=== PATIENT | female | born 2005 | race Asian ===

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

== ENCOUNTER 2024-10-20 17:24 | Inpatient (IN) ==
--- NOTE | 2024-10-20 17:40 | Emergency Department Note ---
Impression & Plan Suicidal ideation, Suicide gesture, Intentional self-harm, Hypokalemia ED Provider Note NAME: JOHANN RIOS AGE: 19 SEX: F : 2005 ARRIVES VIA: Walk-In INFORMANT: Patient ED PROVIDER(S): Shaggy Murray MD CHIEF COMPLAINT: Depression, suicidal ideation, self-harm, referred. PLAN: Disposition: Inpatient psychiatric treatment, 3 S. MEDICAL DECISION MAKING: The patient is a 19-year-old woman, [employer] international student from [place] who presents to emergency department via walk-in accompanied by friend and referred by [employer] [facility] for suicidal ideation and self-harm where the patient had inflicted a superficial linear laceration to the right anterior lateral aspect of her neck. Patient acknowledges that this is a dangerous place to cause self-harm but she did not necessarily have the intent to kill herself when she did it. However she does admit to having fluctuating thoughts of killing herself. On evaluation the patient is no acute distress, afebrile with heart in the 150s in the setting of anxiety and otherwise with stable vital signs. Heart rate improved without intervention. She acknowledges depression, fluctuating suicidal ideation, hopelessness. She denies auditory hallucinations. Linear self-inflicted abrasion of the right anterior lateral neck without underlying hematoma. Cleaned by nursing. WBC, hemoglobin and platelets within normal limits. Chemistry without metabolic acidosis. Potassium 2.8 with IV and oral repletion provided. Magnesium 2.0 however IV magnesium also provided to facilitate absorption of potassium. LFTs unremarkable. TSH within normal limits. hCG negative. UA without evidence of infection. Urine drug screen was negative. Medical alcohol was undetectable. COVID-19 RNA, TAMERA test was negative. Repeat chemistry performed on [id number] i-STAT with improvement in potassium to 3.7. Patient was medically cleared. Appreciate case management system/consultation and completion of psychiatric evaluation. Patient was accepted to 3 S. for further management under 302. Triage Nursing notes reviewed and agree them. Prior/external medical records reviewed Vital Signs: reviewed Differential diagnosis: Mood disorder, infection, hypoglycemia, electrolyte abnormalities, cardiac sources, intracerebral event, toxicologic, trauma, neurologic, as well as other pathologies. ER treatment provided: See below. Laboratory studies: See below Consultation(s): Case management HPI: The patient is a 19-year-old woman, [employer] international student from [place] who presents to emergency department via walk-in accompanied by friend and referred by [employer] [facility] for suicidal ideation and self-harm where the patient had inflicted a superficial linear laceration to the right anterior lateral aspect of her neck. Patient acknowledges that this is a dangerous place to cause self- harm but she did not necessarily have the intent to kill herself when she did it. However she does admit to having fluctuating thoughts of killing herself. ROS: See above HPI for pertinent positives & negatives. A total of 10 systems reviewed and were otherwise negative. VITALS:See Below PHYSICAL EXAMINATION: GENERAL: Awake, alert, in no distress HENT: Normocephalic, atraumatic. Oropharynx unremarkable. EYES: Normal conjunctiva. Sclera non-icteric. NECK: Supple. No nuchal rigidity. FROM. No JVD. Superficial linear abrasion of the right anterior lateral aspect of the neck. No underlying hematoma. RESPIRATORY: Clear to auscultation. CARDIAC: Regular rate, normal rhythm. Extremities warm and well perfused. Pulses equal. ABDOMEN: Soft, non-distended. No tenderness to palpation. No rebound or guarding. No masses. MUSCULOSKELETAL: Chest examination reveals no tenderness. The back is symmetrical on inspection without obvious abnormality. There is no CVA tenderness to palpation. No joint edema. LOWER EXTREMITIES: Calves are equal size bilaterally and non-tender. No edema. No discoloration. NEURO: Normal sensorium. No sensory or motor deficits noted. SKIN: No rash or jaundice noted. PSYCH: Depression, hopelessness, suicidal ideation. Denies auditory examinations. Shaggy Murray MD Past Med/Surg History Problem List (Updated 10/21/24 @ 17:17 by Shaggy Murray MD) Eating disorder, unspecified Unspecified mood [affective] disorder Hypokalemia (Acute) Intentional self-harm (Acute) Suicide gesture (Acute) Suicidal ideation (Acute) Screening for STD (sexually transmitted disease) Acquired deviated nasal septum Post traumatic stress disorder (PTSD) Depression (Acute) Medical History Chronic sinusitis TSH elevation Intentional self-harm Suicidal ideation Surgical History Hx of LASIK Family History Grandfather (Maternal) Myocardial infarction Denies family history of Ovarian cancer Prostate cancer Breast cancer Colorectal cancer Social History Smoking Status: Never smoker Preferred Language: Somali Communication Ability: Effective Training Project Manager Required: No Beliefs That Will Affect Care: Cultural Cultural Beliefs: Patient has a high level of anxiety which she reports is partly due to punitive schooling she attended in [place] Feels Safe at Home: Yes Gender Identity: Female Assistive Devices: Glasses Allergies Allergies Allergy/AdvReac Type Severity Reaction Status Date / Time No Known Allergies Allergy Verified 08/02/23 13:35 Home Meds Home Medications Medication Instructions Recorded Confirmed buspirone 10 mg tablet 10 mg PO TID 07/09/24 10/21/24 metformin 500 mg tablet 500 mg BID 07/09/24 07/09/24 quetiapine 25 mg tablet 50 mg PO HS 07/09/24 10/21/24 valproic acid 250 mg capsule 250 mg PO AC 07/09/24 07/09/24 fluoxetine 40 mg capsule 40 mg PO DAILY 10/20/24 10/21/24 lamotrigine 25 mg tablet 25 mg PO DAILY 10/20/24 10/20/24 Results & Data (ED) Vital Signs Vital Signs - 24 hr 10/20/24 17:26 10/20/24 18:01 10/20/24 19:00 Temperature 36.7 C Temperature Source Oral Pulse Rate 151 H Pulse Rate [Finger] 124 H 116 H Pulse Rate from SpO2 Sensor Respiratory Rate 22 22 20 Respiratory Effort / Characteristics Non-Labored Spontaneous Non-Labored Spontaneous Non-Labored Spontaneous Respiratory Depth Normal Normal Normal Respiratory Pattern Regular Regular Blood Pressure 129/90 Blood Pressure [Left Arm] 145/88 H 114/81 Blood Pressure Mean 103 Blood Pressure Mean [Left Arm] 107 92 Blood Pressure Position Sitting Pulse Oximetry 98 98 98 Oxygen Delivery Method Room Air Room Air Room Air Sepsis Recent Fever Within 48 Hours No Sepsis New/Unexplained Change in Mental Status N/A Sepsis Action Taken by Nursing No Action Required 10/20/24 21:00 10/20/24 22:35 10/20/24 22:36 Temperature Temperature Source Pulse Rate 97 H 88 Pulse Rate [Finger] 102 H Pulse Rate from SpO2 Sensor Respiratory Rate 20 19 Respiratory Effort / Characteristics Non-Labored Spontaneous Respiratory Depth Normal Respiratory Pattern Regular Blood Pressure Blood Pressure [Left Arm] 126/72 Blood Pressure Mean Blood Pressure Mean [Left Arm] 90 Blood Pressure Position Pulse Oximetry 99 99 Oxygen Delivery Method Room Air Room Air Sepsis Recent Fever Within 48 Hours Sepsis New/Unexplained Change in Mental Status Sepsis Action Taken by Nursing 10/20/24 22:48 10/20/24 22:50 10/20/24 22:50 Temperature Temperature Source Pulse Rate 88 Pulse Rate [Finger] Pulse Rate from SpO2 Sensor Respiratory Rate 22 Respiratory Effort / Characteristics Respiratory Depth Respiratory Pattern Blood Pressure 122/82 122/82 Blood Pressure [Left Arm] Blood Pressure Mean 92 92 Blood Pressure Mean [Left Arm] Blood Pressure Position Pulse Oximetry Oxygen Delivery Method Sepsis Recent Fever Within 48 Hours Sepsis New/Unexplained Change in Mental Status Sepsis Action Taken by Nursing 10/20/24 23:00 10/20/24 23:00 10/20/24 23:00 Temperature Temperature Source Pulse Rate Pulse Rate [Finger] Pulse Rate from SpO2 Sensor Respiratory Rate Respiratory Effort / Characteristics Respiratory Depth Respiratory Pattern Blood Pressure 115/83 115/83 115/83 Blood Pressure [Left Arm] Blood Pressure Mean 94 94 94 Blood Pressure Mean [Left Arm] Blood Pressure Position Pulse Oximetry Oxygen Delivery Method Sepsis Recent Fever Within 48 Hours Sepsis New/Unexplained Change in Mental Status Sepsis Action Taken by Nursing 10/20/24 23:00 10/20/24 23:00 10/20/24 23:00 Temperature Temperature Source Pulse Rate 96 H Pulse Rate [Finger] Pulse Rate from SpO2 Sensor 96 H Respiratory Rate 16 Respiratory Effort / Characteristics Respiratory Depth Respiratory Pattern Blood Pressure 115/83 115/83 Blood Pressure [Left Arm] Blood Pressure Mean 94 94 Blood Pressure Mean [Left Arm] Blood Pressure Position Pulse Oximetry 99 Oxygen Delivery Method Sepsis Recent Fever Within 48 Hours Sepsis New/Unexplained Change in Mental Status Sepsis Action Taken by Nursing 10/20/24 23:00 10/20/24 23:00 10/20/24 23:00 Temperature Temperature Source Pulse Rate Pulse Rate [Finger] Pulse Rate from SpO2 Sensor Respiratory Rate Respiratory Effort / Characteristics Respiratory Depth Respiratory Pattern Blood Pressure 115/83 115/83 115/83 Blood Pressure [Left Arm] Blood Pressure Mean 94 94 94 Blood Pressure Mean [Left Arm] Blood Pressure Position Pulse Oximetry Oxygen Delivery Method Sepsis Recent Fever Within 48 Hours Sepsis New/Unexplained Change in Mental Status Sepsis Action Taken by Nursing 10/20/24 23:00 10/20/24 23:00 10/20/24 23:00 Temperature Temperature Source Pulse Rate Pulse Rate [Finger] Pulse Rate from SpO2 Sensor Respiratory Rate Respiratory Effort / Characteristics Respiratory Depth Respiratory Pattern Blood Pressure 115/83 115/83 115/83 Blood Pressure [Left Arm] Blood Pressure Mean 94 94 94 Blood Pressure Mean [Left Arm] Blood Pressure Position Pulse Oximetry Oxygen Delivery Method Sepsis Recent Fever Within 48 Hours Sepsis New/Unexplained Change in Mental Status Sepsis Action Taken by Nursing 10/20/24 23:00 10/20/24 23:00 10/20/24 23:00 Temperature Temperature Source Pulse Rate Pulse Rate [Finger] Pulse Rate from SpO2 Sensor Respiratory Rate Respiratory Effort / Characteristics Respiratory Depth Respiratory Pattern Blood Pressure 115/83 115/83 115/83 Blood Pressure [Left Arm] Blood Pressure Mean 94 94 94 Blood Pressure Mean [Left Arm] Blood Pressure Position Pulse Oximetry Oxygen Delivery Method Sepsis Recent Fever Within 48 Hours Sepsis New/Unexplained Change in Mental Status Sepsis Action Taken by Nursing 10/20/24 23:00 10/20/24 23:00 10/20/24 23:00 Temperature Temperature Source Pulse Rate Pulse Rate [Finger] Pulse Rate from SpO2 Sensor Respiratory Rate Respiratory Effort / Characteristics Respiratory Depth Respiratory Pattern Blood Pressure 115/83 115/83 115/83 Blood Pressure [Left Arm] Blood Pressure Mean 94 94 94 Blood Pressure Mean [Left Arm] Blood Pressure Position Pulse Oximetry Oxygen Delivery Method Sepsis Recent Fever Within 48 Hours Sepsis New/Unexplained Change in Mental Status Sepsis Action Taken by Nursing 10/20/24 23:48 10/21/24 00:00 10/21/24 00:00 Temperature Temperature Source Pulse Rate 90 Pulse Rate [Finger] 92 H Pulse Rate from SpO2 Sensor 91 H Respiratory Rate 27 H 18 Respiratory Effort / Characteristics Respiratory Depth Respiratory Pattern Blood Pressure 119/83 Blood Pressure [Left Arm] 119/83 Blood Pressure Mean 89 Blood Pressure Mean [Left Arm] 95 Blood Pressure Position Pulse Oximetry 99 100 Oxygen Delivery Method Sepsis Recent Fever Within 48 Hours Sepsis New/Unexplained Change in Mental Status Sepsis Action Taken by Nursing 10/21/24 00:00 10/21/24 00:00 10/21/24 00:00 Temperature Temperature Source Pulse Rate Pulse Rate [Finger] Pulse Rate from SpO2 Sensor Respiratory Rate Respiratory Effort / Characteristics Respiratory Depth Respiratory Pattern Blood Pressure 119/83 119/83 119/83 Blood Pressure [Left Arm] Blood Pressure Mean 89 89 89 Blood Pressure Mean [Left Arm] Blood Pressure Position Pulse Oximetry Oxygen Delivery Method Sepsis Recent Fever Within 48 Hours Sepsis New/Unexplained Change in Mental Status Sepsis Action Taken by Nursing 10/21/24 00:00 10/21/24 00:00 10/21/24 00:00 Temperature Temperature Source Pulse Rate Pulse Rate [Finger] Pulse Rate from SpO2 Sensor Respiratory Rate Respiratory Effort / Characteristics Respiratory Depth Respiratory Pattern Blood Pressure 119/83 119/83 119/83 Blood Pressure [Left Arm] Blood Pressure Mean 89 89 89 Blood Pressure Mean [Left Arm] Blood Pressure Position Pulse Oximetry Oxygen Delivery Method Sepsis Recent Fever Within 48 Hours Sepsis New/Unexplained Change in Mental Status Sepsis Action Taken by Nursing 10/21/24 00:00 10/21/24 00:00 10/21/24 00:00 Temperature Temperature Source Pulse Rate Pulse Rate [Finger] Pulse Rate from SpO2 Sensor Respiratory Rate Respiratory Effort / Characteristics Respiratory Depth Respiratory Pattern Blood Pressure 119/83 119/83 119/83 Blood Pressure [Left Arm] Blood Pressure Mean 89 89 89 Blood Pressure Mean [Left Arm] Blood Pressure Position Pulse Oximetry Oxygen Delivery Method Sepsis Recent Fever Within 48 Hours Sepsis New/Unexplained Change in Mental Status Sepsis Action Taken by Nursing 10/21/24 00:00 10/21/24 00:00 10/21/24 00:00 Temperature Temperature Source Pulse Rate Pulse Rate [Finger] Pulse Rate from SpO2 Sensor Respiratory Rate Respiratory Effort / Characteristics Respiratory Depth Respiratory Pattern Blood Pressure 119/83 119/83 119/83 Blood Pressure [Left Arm] Blood Pressure Mean 89 89 89 Blood Pressure Mean [Left Arm] Blood Pressure Position Pulse Oximetry Oxygen Delivery Method Sepsis Recent Fever Within 48 Hours Sepsis New/Unexplained Change in Mental Status Sepsis Action Taken by Nursing 10/21/24 00:03 10/21/24 01:00 10/21/24 01:00 Temperature Temperature Source Pulse Rate 87 95 H Pulse Rate [Finger] Pulse Rate from SpO2 Sensor 89 92 H Respiratory Rate 21 19 Respiratory Effort / Characteristics Respiratory Depth Respiratory Pattern Blood Pressure 123/86 Blood Pressure [Left Arm] Blood Pressure Mean 97 Blood Pressure Mean [Left Arm] Blood Pressure Position Pulse Oximetry 100 100 Oxygen Delivery Method Sepsis Recent Fever Within 48 Hours Sepsis New/Unexplained Change in Mental Status Sepsis Action Taken by Nursing 10/21/24 01:00 10/21/24 01:00 10/21/24 01:00 Temperature Temperature Source Pulse Rate Pulse Rate [Finger] Pulse Rate from SpO2 Sensor Respiratory Rate Respiratory Effort / Characteristics Respiratory Depth Respiratory Pattern Blood Pressure 123/86 123/86 123/86 Blood Pressure [Left Arm] Blood Pressure Mean 97 97 97 Blood Pressure Mean [Left Arm] Blood Pressure Position Pulse Oximetry Oxygen Delivery Method Sepsis Recent Fever Within 48 Hours Sepsis New/Unexplained Change in Mental Status Sepsis Action Taken by Nursing 10/21/24 01:00 10/21/24 01:00 10/21/24 01:00 Temperature Temperature Source Pulse Rate Pulse Rate [Finger] Pulse Rate from SpO2 Sensor Respiratory Rate Respiratory Effort / Characteristics Respiratory Depth Respiratory Pattern Blood Pressure 123/86 123/86 123/86 Blood Pressure [Left Arm] Blood Pressure Mean 97 97 97 Blood Pressure Mean [Left Arm] Blood Pressure Position Pulse Oximetry Oxygen Delivery Method Sepsis Recent Fever Within 48 Hours Sepsis New/Unexplained Change in Mental Status Sepsis Action Taken by Nursing 10/21/24 01:00 10/21/24 01:00 10/21/24 01:00 Temperature Temperature Source Pulse Rate Pulse Rate [Finger] Pulse Rate from SpO2 Sensor Respiratory Rate Respiratory Effort / Characteristics Respiratory Depth Respiratory Pattern Blood Pressure 123/86 123/86 123/86 Blood Pressure [Left Arm] Blood Pressure Mean 97 97 97 Blood Pressure Mean [Left Arm] Blood Pressure Position Pulse Oximetry Oxygen Delivery Method Sepsis Recent Fever Within 48 Hours Sepsis New/Unexplained Change in Mental Status Sepsis Action Taken by Nursing 10/21/24 01:00 10/21/24 01:00 10/21/24 01:00 Temperature Temperature Source Pulse Rate Pulse Rate [Finger] Pulse Rate from SpO2 Sensor Respiratory Rate Respiratory Effort / Characteristics Respiratory Depth Respiratory Pattern Blood Pressure 123/86 123/86 123/86 Blood Pressure [Left Arm] Blood Pressure Mean 97 97 97 Blood Pressure Mean [Left Arm] Blood Pressure Position Pulse Oximetry Oxygen Delivery Method Sepsis Recent Fever Within 48 Hours Sepsis New/Unexplained Change in Mental Status Sepsis Action Taken by Nursing 10/21/24 01:00 10/21/24 01:00 10/21/24 01:00 Temperature Temperature Source Pulse Rate Pulse Rate [Finger] Pulse Rate from SpO2 Sensor Respiratory Rate Respiratory Effort / Characteristics Respiratory Depth Respiratory Pattern Blood Pressure 123/86 123/86 123/86 Blood Pressure [Left Arm] Blood Pressure Mean 97 97 97 Blood Pressure Mean [Left Arm] Blood Pressure Position Pulse Oximetry Oxygen Delivery Method Sepsis Recent Fever Within 48 Hours Sepsis New/Unexplained Change in Mental Status Sepsis Action Taken by Nursing 10/21/24 02:00 10/21/24 02:00 10/21/24 02:00 Temperature Temperature Source Pulse Rate 88 Pulse Rate [Finger] Pulse Rate from SpO2 Sensor 86 Respiratory Rate 16 Respiratory Effort / Characteristics Respiratory Depth Respiratory Pattern Blood Pressure 129/85 129/85 Blood Pressure [Left Arm] Blood Pressure Mean 91 91 Blood Pressure Mean [Left Arm] Blood Pressure Position Pulse Oximetry 99 Oxygen Delivery Method Sepsis Recent Fever Within 48 Hours Sepsis New/Unexplained Change in Mental Status Sepsis Action Taken by Nursing 10/21/24 02:00 10/21/24 02:00 10/21/24 02:00 Temperature Temperature Source Pulse Rate Pulse Rate [Finger] Pulse Rate from SpO2 Sensor Respiratory Rate Respiratory Effort / Characteristics Respiratory Depth Respiratory Pattern Blood Pressure 129/85 129/85 129/85 Blood Pressure [Left Arm] Blood Pressure Mean 91 91 91 Blood Pressure Mean [Left Arm] Blood Pressure Position Pulse Oximetry Oxygen Delivery Method Sepsis Recent Fever Within 48 Hours Sepsis New/Unexplained Change in Mental Status Sepsis Action Taken by Nursing 10/21/24 02:23 10/21/24 03:00 Temperature Temperature Source Pulse Rate 81 Pulse Rate [Finger] 90 Pulse Rate from SpO2 Sensor Respiratory Rate 18 Respiratory Effort / Characteristics Respiratory Depth Respiratory Pattern Blood Pressure Blood Pressure [Left Arm] 111/79 Blood Pressure Mean Blood Pressure Mean [Left Arm] 89 Blood Pressure Position Pulse Oximetry 98 Oxygen Delivery Method Room Air Sepsis Recent Fever Within 48 Hours Sepsis New/Unexplained Change in Mental Status Sepsis Action Taken by Nursing Laboratory Data Attestation: I reviewed the patient's lab results. 10/20/24 18:00 10/20/24 18:00 Lab Results 10/20/24 10/20/24 10/21/24 Range/Units 18:00 18:50 02:12 WBC 6.13 (4.8-10.8) K/ul RBC 4.02 L (4.20-5.40) M/uL Hgb 12.1 (12.0-16.0) g/dl POC Hgb 10.9 L (12.0-16.0) g/dl Hct 35.4 L (37.0-47.0) % POC Hct 32 L (37-47) % MCV 88.1 (80.0-100.0) fL MCH 30.1 (25.0-34.0) pg MCHC 34.2 (32.0-36.0) g/dL RDW Std Deviation 38.3 (36.4-46.3) fL RDW Coeff of Gretchen 11.9 (11.5-14.5) % Plt Count 281 (130-400) K/uL MPV 9.9 (9.4-12.4) fL Immature Gran % (Auto) 0.3 % Neut % (Auto) 74.2 % Lymph % (Auto) 18.8 % [place] % (Auto) 5.9 % Eos % (Auto) 0.3 % Baso % (Auto) 0.5 % Neut # (Auto) 4.55 (1.40-6.50) K/uL Lymph # (Auto) 1.15 L (1.20-3.40) K/uL [place] # (Auto) 0.36 (0.11-0.59) K/uL Eos # (Auto) 0.02 (0.00-0.50) K/uL Baso # (Auto) 0.03 (0.00-0.20) K/uL Immature Gran # (Auto) 0.02 (0.01-0.20) K/uL POC Sodium 139 (135-144) mmol/L Sodium 135 L (136-145) mmol/L POC Potassium 3.7 (3.3-5.0) mmol/L Potassium 2.8 L (3.5-5.1) mmol/L POC Chloride 109 (101-112) mmol/L Chloride 104 (98-107) mmol/L Carbon Dioxide 22 (21-32) mmol/L POC Total CO2 18 L (24-31) mmol/L Anion Gap 9 (3-11) POC Anion Gap 17.0 (16-25) mmol/L POC BUN < 3 L (7-18) mg/dl BUN 8 (6-23) mg/dl Creatinine 0.58 L (0.6-1.2) mg/dl POC Creatinine 0.4 mg/dl Est Cr Clr Drug Dosing 105.5 ml/min eGFR 132.78 BUN/Creatinine Ratio 13.8 (10-20) Glucose 106 H (70-99(Fasting)) mg/dl POC Glucose (other) 92 (70-99) mg/dl Calcium 9.4 (8.6-10.3) mg/dl POC Ioniz Calcium Jesús 1.13 mmol/l Magnesium 2.0 (1.7-2.4) mg/dl Total Bilirubin 0.4 (0.2-1.0) mg/dl AST 16 (13-39) U/L ALT 8 (7-52) U/L Alkaline Phosphatase 32 L (34-104) U/L Total Protein 8.2 (6.0-8.3) gm/dl Albumin 4.6 (3.4-5.0) gm/dl Globulin 3.6 (2.5-4.0) gm/dl Albumin/Globulin Ratio 1.3 (0.9-2) TSH 1.935 (0.300-4.500) uIu/ml HCG, Qual Negative (Negative) Urine Color Yellow Urine Appearance Clear (Clear) Urine pH 7.5 (4.5-7.5) Ur Specific [place] 1.005 (1.000-1.030) Urine Protein Negative (Negative) Urine Glucose (UA) Negative (Negative) Urine Ketones Negative (Negative) Urine Blood Negative (Negative) Urine Nitrite Negative (Negative) Urine Bilirubin Negative (Negative) Urine Urobilinogen Negative (Negative) Ur Leukocyte Esterase 1+ H (Negative) Urine WBC (Auto) 0-5 (0-5) /hpf Urine RBC (Auto) 0-2 (0-2) /hpf U Hyaline Cast (Auto) 0-2 (0-2) /lpf U Epithel Cells (Auto) 0-2 (0-2) /hpf Urine Bacteria (Auto) None Seen (None Seen) Salicylates < 3.0 L (3.0-30) mg/dl Urine Opiates Screen Neg (Neg) Ur Methadone, Qual Neg (Neg) Urine Fentanyl Screen Neg (Neg) Acetaminophen < 3 L (10-30) ug/ml Urine Barbiturates Neg (Neg) Valproic Acid < 10 L (50-100) mcg/ml Ur Phencyclidine (PCP) Neg (Neg) U Amphetamin/Meth Scrn Neg (Neg) MDMA (Ecstasy) Screen Neg (Neg) U Benzodiazepines Scrn Neg (Neg) Ur Cocaine Metabolite Neg (Neg) U Marijuana (THC) Screen Neg (Neg) Ethyl Alcohol mg/dL < 10.0 (<10.0) mg/dl SARS-CoV-2, RNA, NAAT NEGATIVE (NEGATIVE) Administered Medications Buspirone HCl (Buspirone 5 Mg Tab) 10 mg PO TID UMU Stop: 11/20/24 13:59 Last Admin: 10/21/24 14:46 Dose: 10 mg Documented By: JOS Fluoxetine HCl (Fluoxetine Hcl 20 Mg Cap) 20 mg PO DAILY UMU Stop: 11/20/24 11:14 Last Admin: 10/21/24 11:36 Dose: 20 mg Documented By: JOS Lamotrigine (Lamotrigine 25 Mg Tab) 25 mg PO DAILY UMU; Protocol Stop: 11/20/24 11:14 Last Admin: 10/21/24 11:36 Dose: 25 mg Documented By: JOS Discontinued Medications Potassium Chloride (K Adrian / Wtr) 10 meq in 100 mls @ 100 mls/hr IV Q1H UMU Stop: 10/20/24 23:29 Last Infusion: 10/21/24 00:48 Dose: Infused Documented By: Admin: 10/20/24 23:41 Dose: 100 mls/hr Documented By: Infusion: 10/20/24 23:35 Dose: Infused Documented By: Admin: 10/20/24 22:28 Dose: 100 mls/hr Documented By: ALFONSO Magnesium Sulfate/Dextrose (Magnesium Sulfate / D5w) 1 gm in 100 mls @ 100 mls/hr IV NOW STA Stop: 10/20/24 22:28 Last Infusion: 10/20/24 23:36 Dose: Infused Documented By: Admin: 10/20/24 22:28 Dose: 100 mls/hr Documented By: ALFONSO Sodium Chloride (Nss) 500 mls @ 125 mls/hr IV .Q4H UMU Stop: 10/21/24 01:29 Last Infusion: 10/21/24 02:28 Dose: Infused Documented By: Admin: 10/20/24 22:28 Dose: 125 mls/hr Documented By: ALFONSO Potassium Chloride (Potassium Chloride Crtab 20 Meq Tabcr) 40 meq PO NOW STA Stop: 10/20/24 21:29 Last Admin: 10/20/24 22:28 Dose: 40 meq Documented By: ALFONSO Discharge Plan Visit Data Chief Complaint: Mental Health Evaluation Stated Complaint: MENTAL HEALTH EVALUATION ED Provider: Shaggy Murray Discharge Problem: Suicidal ideation, Suicide gesture, Intentional self-harm, Hypokalemia Patient Disposition: Admitted As Inpatient Discharge Instructions Interventions: ED Discharge Assessment Last Done: 10/21/24 04:18 Discharge Problem: Suicide gesture Qualifiers: Encounter type: initial encounter Qualified Code(s): X83.8XXA - Intentional self-harm by other specified means, initial encounter
[2024-10-20 18:19] LABS: Basophils # (auto) 0.03 K/uL (0.00-0.20); Basophils % (auto) 0.5 %; Eosinophils # (auto) 0.02 K/uL (0.00-0.50); Eosinophils % (auto) 0.3 %; Hematocrit (blood only) 35.4 % (37.0-47.0); Hemoglobin 12.1 g/dl (12.0-16.0); Immature Granulocytes # (auto) 0.02 K/uL (0.01-0.20); Immature Granulocytes % (auto) 0.3 %; Lymphocytes # (auto) 1.15 K/uL (1.20-3.40); Lymphocytes % (auto) 18.8 %; Mean Corpuscular Hemoglobin 30.1 pg (25.0-34.0); Mean Corpuscular Hgb Conc 34.2 g/dL (32.0-36.0); Mean Corpuscular Volume 88.1 fL (80.0-100.0); Mean Platelet Volume 9.9 fL (9.4-12.4); Monocytes # (auto) 0.36 K/uL (0.11-0.59); Monocytes % (auto) 5.9 %; Neutrophils # (auto) 4.55 K/uL (1.40-6.50); Neutrophils % (auto) 74.2 %; Platelet Count 281 K/uL (130-400); RDW Coefficient of Variation 11.9 % (11.5-14.5); RDW Standard Deviation 38.3 fL (36.4-46.3); Red Blood Count 4.02 M/uL (4.20-5.40); White Blood Count 6.13 K/ul (4.8-10.8)
[2024-10-20 18:32] LABS: Acetaminophen < 3 ug/ml (10-30); Pregnancy Test, Serum Negative (Negative); Salicylate < 3.0 mg/dl (3.0-30)
[2024-10-20 18:40] LABS: Albumin Globulin Ratio 1.3 (0.9-2); Albumin Level 4.6 gm/dl (3.4-5.0); BUN Creatinine Ratio 13.8 (10-20); Bilirubin,Total 0.4 mg/dl (0.2-1.0); Calcium 9.4 mg/dl (8.6-10.3); Creatinine Clr Calc Pharmacy 105.5 ml/min; Globulin 3.6 gm/dl (2.5-4.0); Potassium 2.8 mmol/L (3.5-5.1); Total Protein 8.2 gm/dl (6.0-8.3)
[2024-10-20 18:45] LABS: Valproic Acid < 10 mcg/ml (50-100)
[2024-10-20 18:55] LABS: Thyroid Stimulating Hormone 1.935 uIu/ml (0.300-4.500)
[2024-10-20 19:22] LABS: Appearance Urine Clear (Clear); Bacteria Urine Automated None Seen (None Seen); Bilirubin Urine Negative (Negative); Blood Urine Negative (Negative); Cast Urine Automated 0-2 /lpf (0-2); Color Urine Yellow; Epithelial Cell Urine Auto 0-2 /hpf (0-2); Glucose Urine UA Negative (Negative); Ketones Urine Negative (Negative); Leukocyte Esterase Urine 1+ (Negative); Nitrite Urine Negative (Negative); Protein Urine Negative (Negative); RBC Urine Automated 0-2 /hpf (0-2); Specific Gravity Urine 1.005 (1.000-1.030); Urobilinogen Urine Negative (Negative); WBC Urine Automated 0-5 /hpf (0-5); pH Urine 7.5 (4.5-7.5)
[2024-10-20 20:01] LABS: Amphetamines+Metham, Urine Neg (Neg); Barbiturates, Urine Neg (Neg); Benzodiazepine, Urine Neg (Neg); Cocaine, Urine Neg (Neg); Fentanyl, Urine Neg (Neg); MDMA (Ecstacy), Urine Neg (Neg); Marijuana, Urine Neg (Neg); Methadone, Urine Neg (Neg); Opiate, Urine Neg (Neg); Phencyclidine, Urine Neg (Neg)
[2024-10-20] MEDS: POTASSIUM CHLORIDE CRTAB 20 MEQ TABCR PO STA (22:28)
[2024-10-20] MEDS: SODIUM CHLORIDE 0.9% 500 ML IV SCH (22:28)
[2024-10-20] MEDS: POTASSIUM CHLORIDE / WTR 10 MEQ/100 ML PLCT IV SCH (22:28)
[2024-10-20] MEDS: MAGNESIUM SULFATE / D5W 1 GM/100 ML BAG IV STA (22:28)
[2024-10-21 02:24] LABS: iSTAT Blood Urea Nitrogen < 3 mg/dl (7-18); iSTAT Carbon Dioxide 18 mmol/L (24-31); iSTAT Chloride 109 mmol/L (101-112); iSTAT Creatinine 0.4 mg/dl; iSTAT Glucose 92 mg/dl (70-99); iSTAT Hematocrit 32 % (37-47); iSTAT Hemoglobin 10.9 g/dl (12.0-16.0); iSTAT Ionized Calcium 1.13 mmol/l; iSTAT Potassium 3.7 mmol/L (3.3-5.0); iSTAT Sodium 139 mmol/L (135-144)
[2024-10-21] MEDS ORDERED: MAGNESIUM HYDROXIDE SUSP 30 ML UDC PO PRN (04:48)
[2024-10-21] MEDS ORDERED: BISMUTH SUBSALICYLATE 262 MG CHEW PO PRN (04:48)
[2024-10-21] MEDS ORDERED: hydrOXYzine HCl 25 MG TAB PO PRN ×2 (04:48)
[2024-10-21] MEDS ORDERED: SODIUM CHLORIDE 0.65% NA SOLN 45 ML (OCEAN) PRN (04:48)
[2024-10-21] MEDS ORDERED: ALUMINUM/MAGNESIUM SUSP 30 ML UDC PO PRN (04:48)
[2024-10-21] MEDS ORDERED: ACETAMINOPHEN 325 MG TAB PO PRN (04:48)
[2024-10-21] MEDS ORDERED: OLANZapine 5 MG TABLET PO PRN (04:50)
[2024-10-21 05:20] VITALS: O2SAT 99
--- NOTE | 2024-10-21 09:40 | History & Physical ---
Date of Service October 21, 2024 Impression / Recommendations Impression JOHANN RIOS is a 19-year-old woman, international [employer] from [place] who currently lives in [place], has a history of MDD, LAVINIA, PTSD, bipolar type II, self-harm via cutting and purging, and was admitted on 10/21/24 04:02 on a 302 involuntary commitment for self-harm via cutting neck and SI with plan and rehearsal behaviors to cut her carotid artery but she stopped her attempt. 302 commitment expires on 10/25/2024 @ 2058 Diagnostically consistent with unspecified mood disorder with differential including mixed episode of BPAD given poor sleep, circumferential thought process and slightly rapid speech vs borderline personality disorder with trauma and anxiety. Eating disorder by history, she declines any recent restriction but K+ and Na+ were low on arrival to the ED. She reports poor intake due to fl uoxetine side effect. Discussed medication treatment options in detail including lithium which she declines. Discussed risks, benefits and alternatives. She consented to continuing lamictal for mood stabilization, starting olanzapine to help with sleep and mood stabilization, continuing Buspar and tapering fluoxetine with potential cross-taper to sertraline based on sleep and observation for emergence of any further concerns for possible hypomania/mixed state. Reviewed side effects including but not limited to: GI, REYES, sexual side effects, and counseled on black box warning of potential for emergence of or increased SI and need to let staff know should this occur or should they feel unsafe. Also discussed importance of seeking emergency care following discharge if this side effect occurs in the future with fluoxetine, dizziness with buspar; potential for fatal rash/SJS and need for slow titration and consistent adherence and movement (TD, NMS), cardiac (QTc prolongation), and metabolic (stroke, insulin resistance) and necessity for fasting lipid and glucose labwork and AIMS done with score of 0 with olanzapine. MNPR due to concerns for possible mixed mood episode and need to promote sleep Overall I spent a total of 75 minutes for this admission including review of chart records, review of labwork, direct evaluation of the patient, counseling the patient, ordering medication, risk assessment, discussion with the psychiatric liason RN and documentation in the electronic health record. (1) Intentional self-harm: (2) Suicide gesture: (3) Unspecified mood [affective] disorder: (4) Depression: (5) Post traumatic stress disorder (PTSD): (6) Eating disorder, unspecified: Plan 10/21/2024: The patient was admitted to the [facility] ([facility]) on q15 min checks (behavioral with suicide precautions) for safety. The patient will participate in group, recreational, and milieu therapies and will be offered additional individual and family sessions as clinically appropriate. -decrease fluoxetine to 20mg daily with potential plan to cross-taper to sertraline depending on sleep and mood symptoms -Start olanzapine 2.5mg HS and additional 2.5mg HS prn -continue lamictal 25mg daily -continue buspar 10mg TID -fasting lipid panel, HbA1c, Vit D, K+, Na+, phos, Mag tomorrow AM -Symptom Questionnaires: DSS, PHQ-9, LAVINIA-7, Terry BPD, Trauma questionnaire, Mood Disorder Questionnaire Inventory Assets Strengths: supportive relationships, has been using more coping skills to avoid assumptions in her relationships Needs: safety and stabilization, medication adjustment, additional coping skills, increased outpatient services Suicide Risk Level Suicide Risk Level: High-Moderate (q15 min suicide checks) (s/p rehearsal behaviors and mood changes, but feels safe in the hospital and feels able to ask for support if needed) Risk Factors Assessment Male: No : No Do You Have Access To A Gun?: No Health Problems: No Mental Health Diagnoses: Yes Substance Use Disorders: No Previous Attempt: Yes Family History of Suicide: No Previous Psychiatric Hospitalization: Yes Hopelessness: No Protective Factors Assessment Hindu Beliefs: Yes 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 Chief Complaint "I think it's been more chaotic". History of Present Illness She presents for psychiatric admission for self-harm via cutting her neck and arms and SI with plan of overdosing in the context of sleep difficulties, medication non-adherence and some conflict with her boyfriend. She hasn't been taking Seroquel recently over the last two weeks and hasn't been sleeping. She stopped taking it because of concerns it could lead to weight gain which she feels is an amplified concern for her due to her history of binge eating disorder. She then reached out to Griselda her prescriber at [facility] and she recommended starting lamictal in place of Depakote which began three days ago bu t notes she didn't tell Griselda she hadn't been taking the Seroquel. But then due to very poor sleep she did take Seroquel two nights ago to help with sleep. After taking it she reports having the reaction of being "abnormally drowsy like I couldn't even walk straight" and hallucinations and feeling "very terrified". Since then she's felt like "a self-activated machine" and "like I'm floating". She describes symptoms of "very very detached" which she reports can occur when her "trauma is triggered". She recalls feeling this way last evening in the ED. She also describes feeling like things aren't familiar and like her emotions are blank. Yesterday morning she felt this way but "even more serious, like my rationale thoughts disappeared". She was also hearing and seeing "hallucinations". She describes the auditory hallucinations as random about TV shows she had been watching. She feels like these hallucinations are more "like self talk". Yesterday she was struggling additionally after her boyfriend was insinuating that his mother might not be supportive of their relationship and increased "paranoid" about people not liking her and she started to feel like "everything is empty" and "there is only one thing left, the pain". She reports she didn't plan a lot but she got a clean knife and cut herself after telling her boyfriend she was going to take a shower. She took the knife to her carotid artery on her neck and started to have thoughts of suicide but then after a few cuts she reports she realized she did not want to and cleaned up the cuts. Today she denies SI and feels that the events yesterday were due to her trauma being "re-triggered". Thinking about her past trauma also seems to interfere with her sleep and she can have bad dreams at times. She is currently prescribed fluoxetine 40mg daily (but has decreased her appetite and makes things taste bad), Seroquel 50mg HS, buspar 10mg TID and lamictal 25mg daily. Valproic acid was just stopped with lamictal as the new replacement because it didn't seem to be working and was upsetting her stomach. Psychiatric ROS notable for possible history of batool as she describes periods of mood fluctuations every 1-2 weeks, with periods of low motivation alternating with feeling rested but not necessarily depressed. No current nor history of symptoms of overt psychosis nor OCD. History of PTSD symptoms and self-harm via cutting and eating disorder (she reports a history of binge eating disorder, which she attributes to over-dieting in response to a diagnosis of PCOS and prediabetes and she expresses concerns about her body image and a desire to build muscle and gain weight healthily). Past Psychiatric History Current Psychiatric Diagnosis: Bipolar II; unspecified eating disorder Outpatient Services: Ern[facility] with Griselda on waitlist for therapist at [facility] Previous Psych Admissions: [facility] in April 2022 Do You Have Access To A Gun?: No History of Previous Suicide Attempt: Yes Past Medication Trials: hx of Topiramate-got hallucinations, paranoia lexapro Wellbutrin hx Depakote hx trazodone-not effective Allergies Allergy/AdvReac Type Severity Reaction Status Date / Time No Known Allergies Allergy Verified 08/02/23 13:35 Home Medications Medication Instructions Recorded Confirmed Type buspirone 10 mg tablet 10 mg PO TID 07/09/24 10/21/24 History metformin 500 mg tablet 500 mg BID 07/09/24 07/09/24 History quetiapine 25 mg tablet 50 mg PO HS 07/09/24 10/21/24 History valproic acid 250 mg capsule 250 mg PO AC 07/09/24 07/09/24 History fluoxetine 40 mg capsule 40 mg PO DAILY 10/20/24 10/21/24 History lamotrigine 25 mg tablet 25 mg PO DAILY 10/20/24 10/20/24 History Family History Family History of: Depression, Anxiety and Psychosis/ThoughtDisorder Family Mental Health History Comment: Mother - dep/anx; father - schizophrenia Alcohol History Hx of Alcohol Use Over the Past 12 Months: No (Hx of excessive alcohol use problem in past) AUDIT Total Score: 0 Smoking Use Have You Smoked or Used Tobacco Products in the Last 30 Days: No Smoking Status: Never smoker Substance History Hx of Prescription Med Misuse Over the Past 12 Months: No Hx of Over the Counter Med Misuse Over the Past 12 Months: No Hx of Inhalent Misuse Over the Past 12 Months: No Hx of Organic Substance Use Over the Past 12 Months: No Hx of Illegal Substances/Street Drug Use Over Past 12 Months: No Problems as a Result of Past Substance Use: None Identified Personal History Living Arrangements: Apartment Childhood: From [place], childhood trauma Highest Grade Completed: Some College Employment Status: Student Marital Status: Living w/ Signif. Other Beliefs That Will Affect Care: Cultural Current Legal Problems: No Hx Legal Problems: No Hx Traumatic Life Events: Yes (childhood trauma) Patient History Medical History Chronic sinusitis TSH elevation Intentional self-harm Suicidal ideation Surgical History Hx of LASIK Family History Grandfather (Maternal) Myocardial infarction Denies family history of Ovarian cancer Prostate cancer Breast cancer Colorectal cancer Social History Smoking Status: Never smoker Preferred Language: Montserratian Communication Ability: Effective Cable Ferry Operator Required: No Beliefs That Will Affect Care: Cultural Cultural Beliefs: Patient has a high level of anxiety which she reports is partly due to punitive schooling she att ended in [place] Feels Safe at Home: Yes Gender Identity: Female Assistive Devices: Glasses Review of Systems Review of Systems: All systems reviewed & are unremarkable except as noted in HPI & below Physical Exam Psychiatric: Orientation: alert and oriented x 3 Apperance: appropriately dressed and appropriately groomed Eye Contact: good eye contact Motor Behavior: no abnormal motor movements Speech: + abnormal rate/rhythm/volume of speech (slightly rapid at times, verboise) Affect: + anxious affect Mood: + depressed mood and + anxious mood Thought Process: + circumstantial thought process Thought Content: reality based without delusions Suicidal Thoughts: denies suicidal plan and denies suicidal intent; + reports suicidal thoughts (but s/p rehearsal behaviors) Homicidal Thoughts: denies homicidal thoughts Hallucinations: + auditory hallucinations (intermittent); no visual hallucinations Cognition: recent memory grossly intact, remote memory grossly intact, attention grossly intact and language grossly intact Estimated Intelligence: consistent with education level Insight: + fair insight Judgment: + limited judgement Vital Signs (Past 24 Hours): Last Vital Signs Temp 37.1 C 10/21/24 05:02 Pulse 99 H 10/21/24 05:02 Resp 20 10/21/24 05:02 BP 129/85 10/21/24 05:02 Pulse Ox 99 10/21/24 05:02 O2 Del Method Room Air 10/21/24 05:02 Exam Statement: A physical exam was performed in the ED by Dr. Murray for the purposes of medical clearance. I accept that physical as correct and adequate for the purposes of the inpatient physical exam. Results & Data ([facility]) Laboratory Results Laboratory Results - last 24 hr 10/20/24 10/20/24 10/21/24 18:00 18:50 02:12 WBC 6.13 RBC 4.02 L Hgb 12.1 POC Hgb 10.9 L Hct 35.4 L POC Hct 32 L MCV 88.1 MCH 30.1 MCHC 34.2 RDW Std Deviation 38.3 RDW Coeff of Gretchen 11.9 Plt Count 281 MPV 9.9 Immature Gran % (Auto) 0.3 Neut % (Auto) 74.2 Lymph % (Auto) 18.8 Becker % (Auto) 5.9 Eos % (Auto) 0.3 Baso % (Auto) 0.5 Neut # (Auto) 4.55 Lymph # (Auto) 1.15 L Becker # (Auto) 0.36 Eos # (Auto) 0.02 Baso # (Auto) 0.03 Immature Gran # (Auto) 0.02 POC Sodium 139 Sodium 135 L POC Potassium 3.7 Potassium 2.8 L POC Chloride 109 Chloride 104 Carbon Dioxide 22 POC Total CO2 18 L Anion Gap 9 POC Anion Gap 17.0 POC BUN < 3 L BUN 8 Creatinine 0.58 L POC Creatinine 0.4 Est Cr Clr Drug Dosing 105.5 eGFR 132.78 BUN/Creatinine Ratio 13.8 Glucose 106 H POC Glucose (other) 92 Calcium 9.4 POC Ioniz Calcium Jesús 1.13 Magnesium 2.0 Total Bilirubin 0.4 AST 16 ALT 8 Alkaline Phosphatase 32 L Total Protein 8.2 Albumin 4.6 Globulin 3.6 Albumin/Globulin Ratio 1.3 TSH 1.935 HCG, Qual Negative Urine Color Yellow Urine Appearance Clear Urine pH 7.5 Ur Specific Beaver 1.005 Urine Protein Negative Urine Glucose (UA) Negative Urine Ketones Negative Urine Blood Negative Urine Nitrite Negative Urine Bilirubin Negative Urine Urobilinogen Negative Ur Leukocyte Esterase 1+ H Urine WBC (Auto) 0-5 Urine RBC (Auto) 0-2 U Hyaline Cast (Auto) 0-2 U Epithel Cells (Auto) 0-2 Urine Bacteria (Auto) None Seen Salicylates < 3.0 L Urine Opiates Screen Neg Ur Methadone, Qual Neg Urine Fentanyl Screen Neg Acetaminophen < 3 L Urine Barbiturates Neg Valproic Acid < 10 L Ur Phencyclidine (PCP) Neg U Amphetamin/Meth Scrn Neg MDMA (Ecstasy) Screen Neg U Benzodiazepines Scrn Neg Ur Cocaine Metabolite Neg U Marijuana (THC) Screen Neg Ethyl Alcohol mg/dL < 10.0 SARS-CoV-2, RNA, NAAT NEGATIVE Current Inpatient Medications Current Inpatient Medications: Current Inpatient Medications Acetaminophen (Acetaminophen 325 Mg Tab) 650 mg PO Q4H PRN PRN Reason: Headache or Minor Fever Stop: 11/20/24 04:47 Al Hydrox/Mg Hydrox/Simethicone (Aluminum/Magnesium Susp 30 Ml Udc) 30 ml PO Q4H PRN PRN Reason: GI Upset Stop: 11/20/24 04:47 Bismuth Subsalicylate (Bismuth Subsalicylate 262 Mg Chew) 2 tab PO Q30M PRN PRN Reason: Loose Stool/Diarrhea Stop: 11/20/24 04:47 Hydroxyzine HCl (Hydroxyzine Hcl 25 Mg Tab) 50 mg PO HSZ PRN PRN Reason: Insomnia Stop: 11/20/24 04:47 Hydroxyzine HCl (Hydroxyzine Hcl 25 Mg Tab) 25 mg PO Q4H PRN PRN Reason: Anxiety Stop: 11/20/24 04:47 Magnesium Hydroxide (Magnesium Hydroxide Susp 30 Ml Udc) 30 ml PO DAILY PRN PRN Reason: Constipation Stop: 11/20/24 04:47 Olanzapine (Olanzapine 5 Mg Tablet) 5 mg PO BID PRN PRN Reason: Agitation Stop: 11/20/24 08:59 Sodium Chloride (Sodium Chloride 0.65% Na Soln 45 Ml ([place])) 1 - 2 sprays NA PRN PRN PRN Reason: Nasal Dryness/Congestion Stop: 11/20/24 04:47
[2024-10-21] MEDS ORDERED: OLANZAPINE 2.5 MG TAB PO PRN (11:15)
[2024-10-21] MEDS: lamoTRIgine 25 MG TAB PO SCH (11:36)
[2024-10-21] MEDS: FLUoxetine HCL 20 MG CAP PO SCH (11:36)
[2024-10-21] MEDS: busPIRone 5 MG TAB PO SCH (14:46)
[2024-10-21] MEDS: OLANZAPINE 2.5 MG TAB PO SCH (21:13)
[2024-10-22 06:19] VITALS: RESP 16
[2024-10-22 07:45] LABS: Estimated Average Glucose 82 mg/dl; Hemoglobin A1C 4.5 % (4.5-5.6)
[2024-10-22 07:58] LABS: Chol HDL Ratio 2.8 (0-5); Magnesium 2.2 mg/dl (1.7-2.4); Phosphorus 3.8 mg/dl (2.5-4.9); Potassium 3.7 mmol/L (3.5-5.1)
--- NOTE | 2024-10-22 10:41 | Psychiatric Progress Note ---
Date of Service October 22, 2024 Impression / Recommendations Impression JOHANN RIOS is a 19-year-old woman, international [employer] from [place] who currently lives in [place], has a history of MDD, LAVINIA, PTSD, bipolar type II, self-harm via cutting and purging, and was admitted on 10/21/24 04:02 on a 302 involuntary commitment for self-harm via cutting neck and SI with plan and rehearsal behaviors to cut her carotid artery but she stopped her attempt. 302 commitment expires on 10/25/2024 @ 2058 Diagnostically consistent with unspecified mood disorder with differential including mixed episode of BPAD given poor sleep, circumferential thought process and slightly rapid speech vs borderline personality disorder with trauma and anxiety. Eating disorder by history, she declines any recent restriction but K+ and Na+ were low on arrival to the ED. She reports poor intake due to fl uoxetine side effect. A: Mood improving, fairly elevated which continues concern for mixed episode especially given ongoing limited sleep. Olanzapine did help her get some sleep and appetite improving. She is agreeable to continuing olanzapine, will avoid further dose titration due to blurry vision. Labwork reviewed and electrolytes normal, fasting lipid panel and HbA1c stable. Vit D low so will start supplementation which she consents to. 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 Discussed option for [place] as potentially safer alternative, she prefers to continue with lamictal. Reviewed screening questionnaires which are consistent with diagnosis of BIpolar Disorder Type II, BPD, mild anxiety, trauma symptoms and low DSS-B scores. Given need for slow titration of lamictal she is in agreeable to remain on low dose fluoxetine, as appetite and taste are improving, to reduce risk for inducing hypomania with higher dose or medication switch until lamictal dose is optimized for mood stabilization. MNPR due to concerns for possible mixed mood episode and need to promote sleep Overall, I spent a total of 50 minutes on this case including meeting with the patient, reviewing the chart, nursing report, orders, and documentation. (1) Suicide gesture: (2) Intentional self-harm: (3) Bipolar 2 disorder: (4) Borderline personality disorder: (5) Trauma and stressor-related disorder: (6) Unspecified mood [affective] disorder: (7) Depression: (8) Post traumatic stress disorder (PTSD): (9) Eating disorder, unspecified: Plan 10/22/2024: -Continue with current medications and tx plan 10/21/2024: The patient was admitted to the [facility]) on q15 min checks (behavioral with suicide precautions) for safety. The patient will participate in group, recreational, and milieu therapies and will be offered additional individual and family sessions as clinically appropriate. -decrease fluoxetine to 20mg daily with potential plan to cross-taper to sertraline depending on sleep and mood symptoms -Start olanzapine 2.5mg HS and additional 2.5mg HS prn -continue lamictal 25mg daily -continue buspar 10mg TID -fasting lipid panel, HbA1c, Vit D, K+, Na+, phos, Mag tomorrow AM -Symptom Questionnaires: DSS, PHQ-9, LAVINIA-7, Terry BPD, Trauma questionnaire, Mood Disorder Questionnaire Inventory Assets Strengths: supportive relationships, has been using more coping skills to avoid assumptions in her relationships Needs: safety and stabilization, medication adjustment, additional coping skills, increased outpatient services Suicide Risk Level Suicide Risk Level: Moderate (q15 min suicide checks) (s/p rehearsal behaviors and mood changes, still with poor sleep but improving slightly, denies SI and feels safe in the hospital and feels able to ask for support if needed) Suicide Risk Level Comments: Risk Factors Assessment Male: No : No Do You Have Access To A Gun?: No Health Problems: No Mental Health Diagnoses: Yes Substance Use Disorders: No Previous Attempt: Yes Family History of Suicide: No Previous Psychiatric Hospitalization: Yes Hopelessness: No Protective Factors Assessment Sikhism Beliefs: Yes 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 Chief Complaint "Pretty drowsy but otherwise good". Review of Systems Sleep Information Total Hours of Sleep: 5.5 Meal Information Percent Meal Consumed - Breakfast: 70 Percent Meal Consumed - Lunch: 75 Percent Meal Consumed - Dinner: 70 Subjective Subjective Patient was seen & assessed and interval progress reviewed with nursing. Slept yesterday afternoon, slept some overnight but with awakenings including early at 5am. Today reports some drowsiness but hasn't napped. Denies any medication side effects except fatigue and slightly blurry vision. She reports this is very tolerable and that she's experienced it before. Reviewed labwork and screening questionnaire results. She denies SI today. Physical Exam Psychiatric Orientation: alert and oriented x 3 Apperance: appropriately dressed and appropriately groomed Eye Contact: good eye contact Motor Behavior: no abnormal motor movements Speech: + abnormal rate/rhythm/volume of speech (slightly rapid ) Affect: euthymic affect; + mood not congruent with affect Mood: + depressed mood and + anxious mood Thought Process: + circumstantial thought process Thought Content: reality based without delusions Suicidal Thoughts: denies suicidal thoughts (but s/p rehearsal behaviors), denies suicidal plan and denies suicidal intent Homicidal Thoughts: denies homicidal thoughts Hallucinations: + visual hallucinations (reports seeing "Pixels"); no auditory hallucinations Cognition: recent memory grossly intact, remote memory grossly intact, attention grossly intact and language grossly intact Estimated Intelligence: consistent with education level Insight: + fair insight Judgment: + limited judgement Vital Signs (Past 24 Hours) Last Vital Signs Temp 36.7 C 10/22/24 06:16 Pulse 76 10/22/24 06:16 Resp 16 10/22/24 06:16 BP 88/56 L 10/22/24 06:18 Pulse Ox 99 10/22/24 06:16 O2 Del Method Room Air 10/22/24 06:16 Results & Data ([facility]) Laboratory Results Laboratory Results - last 24 hr 10/22/24 07:10 Sodium 139 Potassium 3.7 D Estimat Average Glucose 82 Hemoglobin A1c 4.5 Phosphorus 3.8 Magnesium 2.2 Triglycerides 60 Cholesterol 155 LDL Cholesterol, Calc 87 VLDL Cholesterol, Calc 12 HDL Cholesterol 56 Cholesterol/HDL Ratio 2.8 25-OH Vitamin D Total 15.7 L Current Inpatient Medications Current Inpatient Medications: Current Inpatient Medications Acetaminophen (Acetaminophen 325 Mg Tab) 650 mg PO Q4H PRN PRN Reason: Headache or Minor Fever Stop: 11/20/24 04:47 Al Hydrox/Mg Hydrox/Simethicone (Aluminum/Magnesium Susp 30 Ml Udc) 30 ml PO Q4H PRN PRN Reason: GI Upset Stop: 11/20/24 04:47 Bismuth Subsalicylate (Bismuth Subsalicylate 262 Mg Chew) 2 tab PO Q30M PRN PRN Reason: Loose Stool/Diarrhea Stop: 11/20/24 04:47 Buspirone HCl (Buspirone 5 Mg Tab) 10 mg PO TID UMU Stop: 11/20/24 13:59 Last Admin: 10/22/24 08:34 Dose: 10 mg Fluoxetine HCl (Fluoxetine Hcl 20 Mg Cap) 20 mg PO DAILY UMU Stop: 11/20/24 11:14 Last Admin: 10/22/24 08:34 Dose: 20 mg Hydroxyzine HCl (Hydroxyzine Hcl 25 Mg Tab) 50 mg PO HSZ PRN PRN Reason: Insomnia Stop: 11/20/24 04:47 Hydroxyzine HCl (Hydroxyzine Hcl 25 Mg Tab) 25 mg PO Q4H PRN PRN Reason: Anxiety Stop: 11/20/24 04:47 Lamotrigine (Lamotrigine 25 Mg Tab) 25 mg PO DAILY UMU; Protocol Stop: 11/20/24 11:14 Last Admin: 10/22/24 08:34 Dose: 25 mg Magnesium Hydroxide (Magnesium Hydroxide Susp 30 Ml Udc) 30 ml PO DAILY PRN PRN Reason: Constipation Stop: 11/20/24 04:47 Olanzapine (Olanzapine 5 Mg Tablet) 5 mg PO BID PRN PRN Reason: Agitation Stop: 11/20/24 08:59 Olanzapine (Olanzapine 2.5 Mg Tab) 2.5 mg PO HS UMU Stop: 11/20/24 21:59 Last Admin: 10/21/24 21:13 Dose: 2.5 mg Olanzapine (Olanzapine 2.5 Mg Tab) 2.5 mg PO HS PRN PRN Reason: insomnia Stop: 11/20/24 21:59 Sodium Chloride (Sodium Chloride 0.65% Na Soln 45 Ml ([place])) 1 - 2 sprays NA PRN PRN PRN Reason: Nasal Dryness/Congestion Stop: 11/20/24 04:47 Mental Health & Subst Abuse Tx Psychiatrist Date Of Appointment With Psychiatric Provider: The first full week of October Therapist Name of Therapist: Waiting list for [place] Eating Disorder Psychologist Name of Eating Disorder Psychologist: None Post Discharge Appointments Primary Care Physician Name Of Family Doctor/PCP: LIANA (1) Suicide gesture Encounter type: initial encounter Qualified Code(s): X83.8XXA - Intentional self-harm by other specified means, initial encounter
[2024-10-22] MEDS: CHOLECALCIFEROL 125 MCG (5,000 UNITS) TAB PO SCH (17:22)
--- NOTE | 2024-10-23 08:52 | Psychiatric Progress Note ---
Date of Service October 23, 2024 Impression / Recommendations Impression JOHANN RIOS is a 19-year-old woman, international [employer] from [place] who currently lives in [place], has a history of MDD, LAVINIA, PTSD, bipolar type II, self-harm via cutting and purging, and was admitted on 10/21/24 04:02 on a 302 involuntary commitment for self-harm via cutting neck and SI with plan and rehearsal behaviors to cut her carotid artery but she stopped her attempt. 302 commitment expires on 10/25/2024 @ 2058 Diagnostically consistent with unspecified mood disorder with differential including mixed episode of BPAD given poor sleep, circumferential thought process and slightly rapid speech vs borderline personality disorder with trauma and anxiety. Eating disorder by history, she declines any recent restriction but K+ and Na+ were low on arrival to the ED. She reports poor intake due to fl uoxetine side effect. A: No evidence for hypomania today but more depressed. Sleeping more with olanzapine but low BP this morning so discussed trial of a very small dose, 1.25mg HS, which she is agreeable to trying. Increasingly seems that trauma may be playing a significant role in her symptoms, especially as nightmares/night terrors seem to contribute to her insomnia at times. Unfortunately given her low BP prazosin not felt to be a safe option at this point. No other new medication side effects. Helped her think about ways to reframe some of her thoughts and fears related to past trauma, discussed goal of outpatient therapy to continue to work on coping with past trauma and current stressors. MNPR due to concerns for possible mixed mood episode and need to promote sleep Overall, I spent a total of 50 minutes on this case including meeting with the patient, reviewing the chart, nursing report, orders, and documentation. (1) Suicide gesture: (2) Intentional self-harm: (3) Bipolar 2 disorder: (4) Borderline personality disorder: (5) Trauma and stressor-related disorder: (6) Unspecified mood [affective] disorder: (7) Depression: (8) Post traumatic stress disorder (PTSD): (9) Eating disorder, unspecified: Plan 10/23/2024: -Decrease olanzapine to 1.25mg HS 10/22/2024: -Continue with current medications and tx plan 10/21/2024: The patient was admitted to the [facility] on q15 min checks (behavioral with suicide precautions) for safety. The patient will participate in group, recreational, and milieu therapies and will be offered additional individual and family sessions as clinically appropriate. -decrease fluoxetine to 20mg daily with potential plan to cross-taper to se rtraline depending on sleep and mood symptoms -Start olanzapine 2.5mg HS and additional 2.5mg HS prn -continue lamictal 25mg daily -continue buspar 10mg TID -fasting lipid panel, HbA1c, Vit D, K+, Na+, phos, Mag tomorrow AM -Symptom Questionnaires: DSS, PHQ-9, LAVINIA-7, Terry BPD, Trauma questionnaire, Mood Disorder Questionnaire Inventory Assets Strengths: supportive relationships, has been using more coping skills to avoid assumptions in her relationships Needs: safety and stabilization, medication adjustment, additional coping skills, increased outpatient services Suicide Risk Level Suicide Risk Level: Moderate (q15 min suicide checks) (s/p rehearsal behaviors and mood changes, denies SI but lower mood today, feels safe in the hospital and feels able to ask for support if needed) Suicide Risk Level Comments: Risk Factors Assessment Male: No : No Do You Have Access To A Gun?: No Health Problems: No Mental Health Diagnoses: Yes Substance Use Disorders: No Previous Attempt: Yes Family History of Suicide: No Previous Psychiatric Hospitalization: Yes Hopelessness: No Protective Factors Assessment Buddhism Beliefs: Yes 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 Chief Complaint "A little down". Review of Systems Sleep Information Total Hours of Sleep: 7.5 Meal Information Percent Meal Consumed - Breakfast: 70 Percent Meal Consumed - Lunch: 50 Percent Meal Consumed - Dinner: 100 Subjective Subjective Patient was seen & assessed and interval progress reviewed with treatment team. Attending groups. Had some urges for self-harm last evening. Today reports her mood is " a little down" and she appears close to tearfulness which she attributes to having more thoughts of past trauma from a camp she had to attend in [place] after [employer] high[employer]. She notes that being in an inpatient environment can sometimes remind her of this experience and yesterday after taking a nap she had a nightmare about past trauma from the camp. She denied any symptoms related to low BP this morning though she thinks her BP is often low. She reports eating well yesterday evening and drinking fluids before bed. Physical Exam Psychiatric Orientation: alert and oriented x 3 Apperance: appropriately dressed and appropriately groomed Eye Contact: good eye contact Motor Behavior: no abnormal motor movements Speech: normal rate/rhythm/volume of speech Affect: + depressed affect and + anxious affect Mood: + depressed mood and + anxious mood Thought Process: + circumstantial thought process Thought Content: reality based without delusions Suicidal Thoughts: denies suicidal thoughts (but s/p rehearsal behaviors), denies suicidal plan and denies suicidal intent Homicidal Thoughts: denies homicidal thoughts Hallucinations: no auditory hallucinations and no visual hallucinations Cognition: recent memory grossly intact, remote memory grossly intact, attention grossly intact and language grossly intact Estimated Intelligence: consistent with education level Insight: + fair insight Judgment: + fair judgement Vital Signs (Past 24 Hours) Last Vital Signs Temp 37 C 10/23/24 06:21 Pulse 80 10/23/24 06:21 Resp 16 10/23/24 06:21 BP 77/46 L 10/23/24 06:21 Pulse Ox 99 10/22/24 06:16 O2 Del Method Room Air 10/22/24 06:16 Results & Data ([facility]) Current Inpatient Medications Current Inpatient Medications: Current Inpatient Medications Acetaminophen (Acetaminophen 325 Mg Tab) 650 mg PO Q4H PRN PRN Reason: Headache or Minor Fever Stop: 11/20/24 04:47 Al Hydrox/Mg Hydrox/Simethicone (Aluminum/Magnesium Susp 30 Ml Udc) 30 ml PO Q4H PRN PRN Reason: GI Upset Stop: 11/20/24 04:47 Bismuth Subsalicylate (Bismuth Subsalicylate 262 Mg Chew) 2 tab PO Q30M PRN PRN Reason: Loose Stool/Diarrhea Stop: 11/20/24 04:47 Buspirone HCl (Buspirone 5 Mg Tab) 10 mg PO TID UMU Stop: 11/20/24 13:59 Last Admin: 10/23/24 08:48 Dose: 10 mg Fluoxetine HCl (Fluoxetine Hcl 20 Mg Cap) 20 mg PO DAILY UMU Stop: 11/20/24 11:14 Last Admin: 10/23/24 08:48 Dose: 20 mg Hydroxyzine HCl (Hydroxyzine Hcl 25 Mg Tab) 50 mg PO HSZ PRN PRN Reason: Insomnia Stop: 11/20/24 04:47 Hydroxyzine HCl (Hydroxyzine Hcl 25 Mg Tab) 25 mg PO Q4H PRN PRN Reason: Anxiety Stop: 11/20/24 04:47 Lamotrigine (Lamotrigine 25 Mg Tab) 25 mg PO DAILY UMU; Protocol Stop: 11/20/24 11:14 Last Admin: 10/23/24 08:48 Dose: 25 mg Magnesium Hydroxide (Magnesium Hydroxide Susp 30 Ml Udc) 30 ml PO DAILY PRN PRN Reason: Constipation Stop: 11/20/24 04:47 Olanzapine (Olanzapine 5 Mg Tablet) 5 mg PO BID PRN PRN Reason: Agitation Stop: 11/20/24 08:59 Olanzapine (Olanzapine 2.5 Mg Tab) 2.5 mg PO HS UMU Stop: 11/20/24 21:59 Last Admin: 10/22/24 22:13 Dose: 2.5 mg Olanzapine (Olanzapine 2.5 Mg Tab) 2.5 mg PO HS PRN PRN Reason: insomnia Stop: 11/20/24 21:59 Sodium Chloride (Sodium Chloride 0.65% Na Soln 45 Ml ([place])) 1 - 2 sprays NA PRN PRN PRN Reason: Nasal Dryness/Congestion Stop: 11/20/24 04:47 Vitamin D (Cholecalciferol 125 Mcg (5,000 Units) Tab) 125 mcg PO QAM UMU Stop: 11/21/24 15:59 Last Admin: 10/23/24 08:47 Dose: 125 mcg Mental Health & Subst Abuse Tx Psychiatrist Date Of Appointment With Psychiatric Provider: The first full week of October Therapist Name of Therapist: Waiting list for Ze Support Merchandiser Name of Support Merchandiser: None Post Discharge Appointments Primary Care Physician Name Of Family Doctor/PCP: ROSALEES (1) Suicide gesture Encounter type: initial encounter Qualified Code(s): X83.8XXA - Intentional self-harm by other specified means, initial encounter
[2024-10-23] MEDS: OLANZAPINE 2.5 MG TAB PO SCH (21:47)
--- NOTE | 2024-10-24 09:07 | Psychiatric Progress Note ---
Date of Service October 24, 2024 Impression / Recommendations Impression JOHANN RIOS is a 19-year-old woman, international [employer] from [place] who currently lives in [place], has a history of MDD, LAVINIA, PTSD, bipolar type II, self-harm via cutting and purging, and was admitted on 10/21/24 04:02 on a 302 involuntary commitment for self-harm via cutting neck and SI with plan and rehearsal behaviors to cut her carotid artery but she stopped her attempt. 302 commitment expires on 10/25/2024 @ 2058 Diagnostically consistent with unspecified mood disorder with differential including mixed episode of BPAD given poor sleep, circumferential thought process and slightly rapid speech vs borderline personality disorder with trauma and anxiety. Eating disorder by history, she declines any recent restriction but K+ and Na+ were low on arrival to the ED. She reports poor intake due to flu oxetine side effect. A: Mood improving, no evidence for any hypomania/batool. Sleep improving and less sedation today from low dose olanzapine. Still with low BP this morning but no signs of orthostatic hypotension and she denies any medication side effects. Fewer PTSD symptoms today. No longer requires MNPR. Overall, I spent a total of 35 minutes on this case including meeting with the patient, reviewing the chart, nursing report, orders, and documentation. (1) Suicide gesture: (2) Intentional self-harm: (3) Bipolar 2 disorder: (4) Borderline personality disorder: (5) Trauma and stressor-related disorder: (6) Unspecified mood [affective] disorder: (7) Depression: (8) Post traumatic stress disorder (PTSD): (9) Eating disorder, unspecified: Plan 10/24/2024: -Continue current medications and tx plan 10/23/2024: -Decrease olanzapine to 1.25mg HS 10/22/2024: -Continue with current medications and tx plan 10/21/2024: The patient was admitted to the [facility] (medical behavioral hospital inpatient mental health unit) on q15 min checks (behavioral with suicide precautions) for safety. The patient will participate in group, recreational, and milieu therapies and will be offered additional individual and family sessions as clinically appropriate. -decrease fluoxetine to 20mg daily with potential plan to cross-taper to sertraline depending on sleep and mood symptoms -Start olanzapine 2.5mg HS and additional 2.5mg HS prn -continue lamictal 25mg daily -continue buspar 10mg TID -fasting lipid panel, HbA1c, Vit D, K+, Na+, phos, Mag tomorrow AM -Symptom Questionnaires: DSS, PHQ-9, LAVINIA-7, Terry BPD, Trauma questionnaire, Mood Disorder Questionnaire Inventory Assets Strengths: supportive relationships, has been using more coping skills to avoid assumptions in her relationships Needs: safety and stabilization, medication adjustment, additional coping skills, increased outpatient services Suicide Risk Level Suicide Risk Level: Moderate (q15 min suicide checks) (s/p rehearsal behaviors and mood changes, denies SI, mood stabilizing, feels safe in the hospital and feels able to ask for support if needed) Suicide Risk Level Comments: Risk Factors Assessment Male: No : No Do You Have Access To A Gun?: No Health Problems: No Mental Health Diagnoses: Yes Substance Use Disorders: No Previous Attempt: Yes Family History of Suicide: No Previous Psychiatric Hospitalization: Yes Hopelessness: No Protective Factors Assessment Synagogue Beliefs: Yes 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 Chief Complaint "Overall better than yesterday, less droswy". Review of Systems Sleep Information Total Hours of Sleep: 7 Meal Information Percent Meal Consumed - Breakfast: 90 Percent Meal Consumed - Lunch: 100 Percent Meal Consumed - Dinner: 100 Subjective Subjective Patient was seen & assessed and interval progress reviewed with nursing and social work. Attending groups. Last evening rated her mood as "calm". She's considering doing a medical withdrawal from [employer]. Today reports that she feels less tired and slept well overnight with the lower dose of olanzapine. She denies any dizziness or symptoms associated with her low blood pressure this morning. She is lying down this afternoon, but reports significantly less sedation today. She denies any nightmares or trauma flashbacks today. She denies SI. Had a good support meeting. She would like to continue with lower dose of olanzapine tonight vs option to try a night without it. No new rashes or medication side effects. Physical Exam Psychiatric Orientation: alert and oriented x 3 Apperance: appropriately dressed and appropriately groomed Eye Contact: good eye contact Motor Behavior: no abnormal motor movements Speech: normal rate/rhythm/volume of speech Affect: + constricted affect Mood: + anxious mood; no depressed mood Thought Process: goal directed thought process Thought Content: reality based without delusions Suicidal Thoughts: denies suicidal thoughts, denies suicidal plan and denies suicidal intent Homicidal Thoughts: denies homicidal thoughts Hallucinations: no auditory hallucinations and no visual hallucinations Cognition: recent memory grossly intact, remote memory grossly intact, attention grossly intact and language grossly intact Estimated Intelligence: consistent with education level Insight: + fair insight Judgment: + fair judgement Vital Signs (Past 24 Hours) Last Vital Signs Temp 37 C 10/24/24 06:44 Pulse 76 10/24/24 06:44 Resp 16 10/24/24 06:44 BP 89/54 L 10/24/24 06:44 Pulse Ox 99 10/22/24 06:16 O2 Del Method Room Air 10/22/24 06:16 Results & Data ([facility]) Current Inpatient Medications Current Inpatient Medications: Current Inpatient Medications Acetaminophen (Acetaminophen 325 Mg Tab) 650 mg PO Q4H PRN PRN Reason: Headache or Minor Fever Stop: 11/20/24 04:47 Al Hydrox/Mg Hydrox/Simethicone (Aluminum/Magnesium Susp 30 Ml Udc) 30 ml PO Q4H PRN PRN Reason: GI Upset Stop: 11/20/24 04:47 Bismuth Subsalicylate (Bismuth Subsalicylate 262 Mg Chew) 2 tab PO Q30M PRN PRN Reason: Loose Stool/Diarrhea Stop: 11/20/24 04:47 Buspirone HCl (Buspirone 5 Mg Tab) 10 mg PO TID MUU Stop: 11/20/24 13:59 Last Admin: 10/24/24 08:50 Dose: 10 mg Fluoxetine HCl (Fluoxetine Hcl 20 Mg Cap) 20 mg PO DAILY UMU Stop: 11/20/24 11:14 Last Admin: 10/24/24 08:49 Dose: 20 mg Hydroxyzine HCl (Hydroxyzine Hcl 25 Mg Tab) 50 mg PO HSZ PRN PRN Reason: Insomnia Stop: 11/20/24 04:47 Hydroxyzine HCl (Hydroxyzine Hcl 25 Mg Tab) 25 mg PO Q4H PRN PRN Reason: Anxiety Stop: 11/20/24 04:47 Lamotrigine (Lamotrigine 25 Mg Tab) 25 mg PO DAILY UMU; Protocol Stop: 11/20/24 11:14 Last Admin: 10/24/24 08:50 Dose: 25 mg Magnesium Hydroxide (Magnesium Hydroxide Susp 30 Ml Udc) 30 ml PO DAILY PRN PRN Reason: Constipation Stop: 11/20/24 04:47 Olanzapine (Olanzapine 5 Mg Tablet) 5 mg PO BID PRN PRN Reason: Agitation Stop: 11/20/24 08:59 Olanzapine (Olanzapine 2.5 Mg Tab) 2.5 mg PO HS PRN PRN Reason: insomnia Stop: 11/20/24 21:59 Olanzapine (Olanzapine 2.5 Mg Tab) 1.25 mg PO HS UMU Stop: 11/22/24 21:59 Last Admin: 10/23/24 21:47 Dose: 1.25 mg Sodium Chloride (Sodium Chloride 0.65% Na Soln 45 Ml ([place])) 1 - 2 sprays NA PRN PRN PRN Reason: Nasal Dryness/Congestion Stop: 11/20/24 04:47 Vitamin D (Cholecalciferol 125 Mcg (5,000 Units) Tab) 125 mcg PO QAM UMU Stop: 11/21/24 15:59 Last Admin: 10/24/24 08:50 Dose: 125 mcg Mental Health & Subst Abuse Tx Psychiatrist Name of Psychiatrist: Carrol Cooley Psychiatrist's Date Of Appointment With Psychiatric Provider: 10/30/24 Time of Appointment with Psychiatrist: 11am Psychiatric Appointment Comment: Hosptial follow up appt Therapist Name of Therapist: Waiting list for Ze Cytology Manager Name of Cytology Manager: None Post Discharge Appointments Primary Care Physician Name Of Family Doctor/PCP: LIANA (1) Suicide gesture Encounter type: initial encounter Qualified Code(s): X83.8XXA - Intentional self-harm by other specified means, initial encounter
[2024-10-25 07:15] VITALS: BP 102/65; TEMP 98.5
--- NOTE | 2024-10-25 09:06 | Discharge Summary ---
Date of Service October 25, 2024 History of Present Illness She presents for psychiatric admission for self-harm via cutting her neck and arms and SI with plan of overdosing in the context of sleep difficulties, medication non-adherence and some conflict with her boyfriend. She hasn't been taking Seroquel recently over the last two weeks and hasn't been sleeping. She stopped taking it because of concerns it could lead to weight gain which she feels is an amplified concern for her due to her history of binge eating disorder. She then reached out to Griselda her prescriber at [facility] and she recommended starting lamictal in place of Depakote which began three days ago but notes she didn't tell Griselda she hadn't been taking the Seroquel. But then due to very poor sleep she did take Seroquel two nights ago to help with sleep. After taking it she reports having the reaction of being "abnormally drowsy like I couldn't even walk straight" and hallucinations and feeling "very terrified". Since then she's felt like "a self-activated machine" and "like I'm floating". She describes symptoms of "very very detached" which she reports can occur when her "trauma is triggered". She recalls feeling this way last evening in the ED. She also describes feeling like things aren't familiar and like her emotions are blank. Yesterday morning she felt this way but "even more serious, like my rationale thoughts disappeared". She was also hearing and seeing "hallucinations". She describes the auditory hallucinations as random about TV shows she had been watching. She feels like these hallucinations are more "like self talk". Yesterday she was struggling additionally after her boyfriend was insinuating that his mother might not be supportive of their relationship and increased "paranoid" about people not liking her and she started to feel like "everything is empty" and "there is only one thing left, the pain". She reports she didn't plan a lot but she got a clean knife and cut herself after telling her boyfriend she was going to take a shower. She took the knife to her carotid artery on her neck and started to have thoughts of suicide but then after a few cuts she reports she realized she did not want to and cleaned up the cuts. Today she denies SI and feels that the events yesterday were due to her trauma being "re-triggered". Thinking about her past trauma also seems to interfere with her sleep and she can have bad dreams at times. She is currently prescribed fluoxetine 40mg daily (but has decreased her appetite and makes things taste bad), Seroquel 50mg HS, buspar 10mg TID and lamictal 25mg daily. Valproic acid was just stopped with lamictal as the new replacement because it didn't seem to be working and was upsetting her stomach. Psychiatric ROS notable for possible history of batool as she describes periods of mood fluctuations every 1-2 weeks, with periods of low motivation alternating with feeling rested but not necessarily depressed. No current nor history of symptoms of overt psychosis nor OCD. History of PTSD symptoms and self-harm via cutting and eating disorder (she reports a history of binge eating disorder, which she attributes to over-dieting in response to a diagnosis of PCOS and prediabetes and she expresses concerns about her body image and a desire to buil d muscle and gain weight healthily). Physical Exam Vital Signs (Past 24 Hours) Last Vital Signs Temp 36.9 C 10/25/24 07:14 Pulse 81 10/25/24 07:14 Resp 16 10/25/24 07:14 BP 102/65 10/25/24 07:14 Pulse Ox 99 10/22/24 06:16 O2 Del Method Room Air 10/22/24 06:16 Principal Diagnosis Bipolar Affective Disorder, mixed episode Psychiatric Data See daily stay summary. In short, patient was engaged with the social/therapeutic milieu of the unit, safety was maintained and the patient was cooperative with care. Medication changes included dose reduction of fluoxetine and initiation of olanzapine for mood stabilization and sleep promotion and they tolerated this well. Baseline labs of fasting glucose, fasting lipid profile, and weight were preformed (see labwork results below). Recommend repeat weight in one month. Recommend repeat fasting glucose, HbA1c and fasting lipid profile every 12 weeks and then annually. If symptoms arise recommend checking BP, EKG, prolactin level as clinically indicated or relevant. A support session was held and safety plan was completed prior to discharge. They participated in safety planning and in discussions about ways to seek support and recognizing warning signs and utilizing coping skills. Reviewed ways to have their safety plan and contacts easily available should thoughts of SI re-emerge in the future. Reviewed importance of seeking emergency care should SI intensify, worsen or should they feel unsafe in the future which they agree to do. On the day of discharge they stated their mood was "happy and a little anxious" and remained future-oriented including spending time with her boyfriend, seeing her Parrot rainbow, relaxing and engaging in aftercare appointments for psychiatry, [facility] and [employer] student care and advocacy. Day of Discharge Assessment Today the patient voices readiness for discharge. They note improvement in mood and anxiety. They deny thoughts of harm to self or others. Thoughts are organized and they are clinically improved from admission. There is no evidence of psychosis. They improved in the hospital with support and medication a djustments. They agree to take medications as prescribed and keep follow-up appointments. At the time of the discharge they are deemed to be stable and appropriate for outpatient level of care. They are not deemed to be at imminent risk of harm to self or others. They are aware of emergency and crisis services. Knows to call 911 or go to nearest emergency care center if in a crisis which cannot be handled as an outpatient. Suicide risk assessment: Acute risk is low given improvement in mood and denial of SI, lack of access to lethal means, improvement in sleep, hopefulness improvement in hypomania. Chronic risk is moderate given some non-modifiable risk factors: psychiatric co- morbid diagnoses, periods of impulsivity, prior attempt, hx self-harm, emotional reactivity, prior psychiatric hospitalization, mood disorder, cluster B personality disorder, childhood trauma but also with protective factors including student, good social support, sense of responsibility to family and social supports, outpatient care in place, positive coping skills, positive problem solving, willingness to engage with treatment and self-observation. Counseled on ways to reduce acute and chronic risk including engaging with outpatient providers, using safety plan if needed, utilizing supports, taking medication, and using coping skills. Modifiable risk factors of SI, mood labil ity, insomnia and depression were addressed during hospitalization through development of new coping skills, support meeting, safety planning, and medication adjustments. Discharge physical exam: See admission H&P, MSE per above and day of discharge summary. Overall, I spent a total of 35 minutes on this case including meeting with the patient, reviewing the chart, nursing report, multidisciplinary team meeting, discharge orders, anticipatory planning, safety planning, risk assessment and documentation. Transition of Care Transition Of Care Record: was reviewed with the patient Advance Directives Advance Directives Information Provided: Yes Advance Directives: No Mental Health Advance Directive: No Living Will: No Power of Certified Pest Control Technician: No Advance Directives Reason:: Declines as Mental Health Visit. 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 Relationships: Yes Supportive Family: Yes Good Rapport with Provider: Yes Discharge Data Lab Results 10/20/24 10/20/24 10/21/24 18:00 18:50 02:12 WBC 6.13 RBC 4.02 L Hgb 12.1 POC Hgb 10.9 L Hct 35.4 L POC Hct 32 L MCV 88.1 MCH 30.1 MCHC 34.2 RDW Std Deviation 38.3 RDW Coeff of Gretchen 11.9 Plt Count 281 MPV 9.9 Immature Gran % (Auto) 0.3 Neut % (Auto) 74.2 Lymph % (Auto) 18.8 Cloud % (Auto) 5.9 Eos % (Auto) 0.3 Baso % (Auto) 0.5 Neut # (Auto) 4.55 Lymph # (Auto) 1.15 L Cloud # (Auto) 0.36 Eos # (Auto) 0.02 Baso # (Auto) 0.03 Immature Gran # (Auto) 0.02 POC Sodium 139 Sodium 135 L POC Potassium 3.7 Potassium 2.8 L POC Chloride 109 Chloride 104 Carbon Dioxide 22 POC Total CO2 18 L Anion Gap 9 POC Anion Gap 17.0 POC BUN < 3 L BUN 8 Creatinine 0.58 L POC Creatinine 0.4 Est Cr Clr Drug Dosing 105.5 eGFR 132.78 BUN/Creatinine Ratio 13.8 Glucose 106 H POC Glucose (other) 92 Estimat Average Glucose Hemoglobin A1c Calcium 9.4 POC Ioniz Calcium Jesús 1.13 Phosphorus Magnesium 2.0 Total Bilirubin 0.4 AST 16 ALT 8 Alkaline Phosphatase 32 L Total Protein 8.2 Albumin 4.6 Globulin 3.6 Albumin/Globulin Ratio 1.3 Triglycerides Cholesterol LDL Cholesterol, Calc VLDL Cholesterol, Calc HDL Cholesterol Cholesterol/HDL Ratio 25-OH Vitamin D Total TSH 1.935 HCG, Qual Negative Urine Color Yellow Urine Appearance Clear Urine pH 7.5 Ur Specific Lincoln 1.005 Urine Protein Negative Urine Glucose (UA) Negative Urine Ketones Negative Urine Blood Negative Urine Nitrite Negative Urine Bilirubin Negative Urine Urobilinogen Negative Ur Leukocyte Esterase 1+ H Urine WBC (Auto) 0-5 Urine RBC (Auto) 0-2 U Hyaline Cast (Auto) 0-2 U Epithel Cells (Auto) 0-2 Urine Bacteria (Auto) None Seen Salicylates < 3.0 L Urine Opiates Screen Neg Ur Methadone, Qual Neg Urine Fentanyl Screen Neg Acetaminophen < 3 L Urine Barbiturates Neg Valproic Acid < 10 L Ur Phencyclidine (PCP) Neg U Amphetamin/Meth Scrn Neg MDMA (Ecstasy) Screen Neg U Benzodiazepines Scrn Neg Ur Cocaine Metabolite Neg U Marijuana (THC) Screen Neg Ethyl Alcohol mg/dL < 10.0 SARS-CoV-2, RNA, NAAT NEGATIVE 10/22/24 07:10 WBC RBC Hgb POC Hgb Hct POC Hct MCV MCH MCHC RDW Std Deviation RDW Coeff of Gretchen Plt Count MPV Immature Gran % (Auto) Neut % (Auto) Lymph % (Auto) Cloud % (Auto) Eos % (Auto) Baso % (Auto) Neut # (Auto) Lymph # (Auto) Cloud # (Auto) Eos # (Auto) Baso # (Auto) Immature Gran # (Auto) POC Sodium Sodium 139 POC Potassium Potassium 3.7 D POC Chloride Chloride Carbon Dioxide POC Total CO2 Anion Gap POC Anion Gap POC BUN BUN Creatinine POC Creatinine Est Cr Clr Drug Dosing eGFR BUN/Creatinine Ratio Glucose POC Glucose (other) Estimat Average Glucose 82 Hemoglobin A1c 4.5 Calcium POC Ioniz Calcium Jesús Phosphorus 3.8 Magnesium 2.2 Total Bilirubin AST ALT Alkaline Phosphatase Total Protein Albumin Globulin Albumin/Globulin Ratio Triglycerides 60 Cholesterol 155 LDL Cholesterol, Calc 87 VLDL Cholesterol, Calc 12 HDL Cholesterol 56 Cholesterol/HDL Ratio 2.8 25-OH Vitamin D Total 15.7 L TSH HCG, Qual Urine Color Urine Appearance Urine pH Ur Specific Lincoln Urine Protein Urine Glucose (UA) Urine Ketones Urine Blood Urine Nitrite Urine Bilirubin Urine Urobilinogen Ur Leukocyte Esterase Urine WBC (Auto) Urine RBC (Auto) U Hyaline Cast (Auto) U Epithel Cells (Auto) Urine Bacteria (Auto) Salicylates Urine Opiates Screen Ur Methadone, Qual Urine Fentanyl Screen Acetaminophen Urine Barbiturates Valproic Acid Ur Phencyclidine (PCP) U Amphetamin/Meth Scrn MDMA (Ecstasy) Screen U Benzodiazepines Scrn Ur Cocaine Metabolite U Marijuana (THC) Screen Ethyl Alcohol mg/dL SARS-CoV-2, RNA, NAAT Hospital Course (1) Suicide gesture: (2) Intentional self-harm: (3) Bipolar 2 disorder: (4) Borderline personality disorder: (5) Trauma and stressor-related disorder: (6) Unspecified mood [affective] disorder: (7) Depression: (8) Post traumatic stress disorder (PTSD): (9) Eating disorder, unspecified: Plan 10/25/2024: -Feels safe and desires discharge 10/24/2024: -Continue current medications and tx plan 10/23/2024: -Decrease olanzapine to 1.25mg HS 10/22/2024: -Continue with current medications and tx plan 10/21/2024: The patient was admitted to the [facility]) on q15 min checks (behavioral with suicide precautions) for safety. The patient will participate in group, recreational, and milieu therapies and will be offered additional individual and family sessions as clinically appropriate. -decrease fluoxetine to 20mg daily with potential plan to cross-taper to sertraline depending on sleep and mood symptoms -Start olanzapine 2.5mg HS and additional 2.5mg HS prn -continue lamictal 25mg daily -continue buspar 10mg TID -fasting lipid panel, HbA1c, Vit D, K+, Na+, phos, Mag tomorrow AM -Symptom Questionnaires: DSS, PHQ-9, LAVINIA-7, Terry BPD, Trauma questionnaire, Mood Disorder Questionnaire Mental Health & Subst Abuse Tx Psychiatrist Name of Psychiatrist: Carrol Cooley Psychiatrist's Date Of Appointment With Psychiatric Provider: 10/30/24 Time of Appointment with Psychiatrist: 11am Psychiatric Appointment Comment: Hosptial follow up appt Therapist Name of Therapist: [facility] Therapist's Date of Therapist Appointment: 10/26/24 Time of Therapist Appointment: 1:30pm Therapy Appointment Comment: Virtual-they will send a link to your email Soft Shoe Dancer Name of Soft Shoe Dancer: None Post Discharge Appointments Primary Care Physician Name Of Family Doctor/PCP: [facility] Partial or Psych Rehab Name of Partial or Psych Rehab: [facility] Phone Number of Partial or Psych Rehab: [phone] Release of Information for Partial or Psych Rehab: Obtained Contact Information Discharge Discharge Address: [address] [place] [address] [address] [place], [place] [address] Discharge Plan Discharge Items Patient Disposition: Home - Self-Care Reason For Visit: UNSPECIFIED MOOD DISORDER,SUICIDE ATTEMPT Discharge Diagnosis: Bipolar Affective Disorder Type II, mixed mood episode Activity: Resume your previous activity Non-emergency contact: Primary Care Provider, Psychiatrist and Therapist Call non-emergency contact if: you have any medication questions and your symptoms worsen Follow-up/Referrals: [facility] [Primary Care Provider] - Diet: Regular Addtl Attending Provider Instructions: SPECIAL CARE INSTRUCTIONS: 1. Follow through with your scheduled aftercare appointments. If unable to keep an appointment, please call to reschedule. 2. Take your medication only as prescribed. Medication should not be changed or stopped without the approval of your doctor. In the event of worsening symptoms or concerns about side effects, contact your doctor immediately. 3. Utilize new healthy coping skills, anger management skills, and stress management skills learned during your hospitalization. Journal feelings and process them with a support person. Identify stressors or situations that may result in relapse, deterioration or inappropriate behaviors and develop a plan to deal with those issues. 4. If your coping skills are ineffective and you are in crisis, contact your outpatient providers for direction. If unable to reach your providers, please call the [facility] CRISIS LINE AT , go to the [facility] walk-in center at [address], [address], [place], or go to the closest Emergency Room. 5. Avoid alcohol and un-prescribed drugs. 6. You have been provided with the Mental Health Advance Directives Pamphlet for your review. 7. Your condition is stable for discharge to outpatient level of care, but recovery is an ongoing process. Ifthoughts to harm yourself or others return, follow the safety plan developed during your stay. Planning for a safe return home includes securing weapons. Our treatment team recommends weaponsbe removed from the home until your outpatient provider reassesses your progress. In rare cases where the items themselvescannot be removed, guns and ammunitionshould be secured separatelyand keys stored by a reliable personoutside of the home. If you were admitted on an involuntary commitment, the police or other legal authorities may be involved in this process. AFTERCARE APPOINTMENTS: * Please call your insurance company prior to your scheduled appointment to confirm your aftercare providers are covered. Take your insurance information to your appointments. WHO TO CALL AND WHEN: Medical Emergencies: For questions or emergencies related to your hospital stay, please contact the Inpatient Behavioral Health Unit at [phone]. A bank runner is on-call 15/02 for the Behavioral Health Unit for emergencies At any time you feel your situation is an emergency, you may also call 911 imm ediately. National Crisis Hotline: 433 Pending Studies at Discharge: No Stand-Alone Forms: My [facility] Medications and DC Order Prescriptions: New olanzapine 2.5 mg Tablet 1.25 mg PO HS 30 Days Qty: 15 0RF fluoxetine 20 mg Capsule 20 mg PO DAILY 30 Days Qty: 30 0RF cholecalciferol (vitamin D3) 125 mcg (5,000 unit) Tablet 125 mcg PO QAM 30 Days Qty: 30 0RF Continued metformin 500 mg Tablet 500 mg BID buspirone 10 mg tablet 10 mg PO TID lamotrigine 25 mg tablet 25 mg PO DAILY Discontinued quetiapine 25 mg tablet 50 mg PO HS valproic acid 250 mg capsule 250 mg PO AC fluoxetine 40 mg capsule 40 mg PO DAILY Discharge Orders: Discharge Order (Routine); Ordered 10/25/24 Ordered By: Shraddha Bustillos Admission Data Admit Date/Time: 10/21/24 04:02 Attending Provider: Shraddha Bustillos Admit Provider: Shraddha Bustillos Primary Care Provider: [facility] Other Interventions: Discharge Summary Assessment (RN) Last Done: 10/25/24 09:57 PSY Interdisciplinary Discharge Planning Last Done: 10/25/24 09:57 Coding Level of Care Code 79933 D/C day mgmt > 30 min Diagnoses Suicide gesture X83.8XXA Encounter type: initial encounter Intentional self-harm X83.8XXA Bipolar 2 disorder F31.81 Borderline personality disorder F60.3 Trauma and stressor-related disorder F43.9 Unspecified mood [affective] disorder F39 Depression F32.A Post traumatic stress disorder (PTSD) F43.10 Eating disorder, unspecified F50.9
[2024-10-25 10:02] VITALS: PULSE 76
== END 2024-10-25 10:25 | disposition home or self-care (01) | DRG 884 ==
LOC: ED 17:24 → 3S 10-21 04:02